=== PATIENT | female | born 1960 | race Two or more races ===

== ENCOUNTER 2019-02-21 19:48 | Emergency (ER) | payer MEDICAID, OTHER ==
[~2019-02-21] VITALS: Ht 160 cm; Wt 96.4 kg
[2019-02-21 20:41] VITALS: BP 133/77
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
[2019-02-21] MEDS ORDERED: ACETAMINOPHEN 500 MG TABLET PO ONE (21:30)
[2019-02-21] MEDS ORDERED: IBUPROFEN 600 MG TABLET PO ONE (21:30)
[2019-02-21] MEDS ORDERED: ACETAMINOPHEN 500 MG TABLET ONE (21:33)
[2019-02-21] MEDS ORDERED: IBUPROFEN 600 MG TABLET ONE (21:33)
--- NOTE | 2019-02-21 21:37 | NUR ---
PT MEDICATED PER MAR, FAMILY AT BEDSIDE, NAMITA. AWAITING XRAY AT THIS TIME
--- NOTE | 2019-02-21 21:55 | NUR ---
PT BACK FROM XRAY AT THIS TIME
--- NOTE | 2019-02-21 22:42 | NUR ---
ALL RESULTS BACK AT THIS TIME CHART UP FOR RECHECK
[2019-02-21] MEDS ORDERED: NEOSPORIN OINT. PKT 1 PACKET ONE (23:04)
--- NOTE | 2019-02-21 23:11 | NUR ---
Dressed wound on forehead with Bacitracin per apr. Discharge instructions given to patient. All questions and concerns addressed. Patient ambulatory with a steady gait. Belongings with patient.
== END 2019-02-21 23:13 | disposition home or self-care (01) ==
LOC: ED 22:31
DX: S01.81XA Laceration without foreign body of other part of head, initial encounter (principal); R07.89 Other chest pain; M25.562 Pain in left knee; E11.9 Type 2 diabetes mellitus without complications; V47.6XXA Car passenger injured in collision with fixed or stationary object in traffic accident, initial encounter; Y93.89 Activity, other specified; Y92.410 Unspecified street and highway as the place of occurrence of the external cause; Y99.8 Other external cause status
CPT/HCPCS: 71046; 93005; 99283